=== PATIENT | male | born 1995 | race Caucasian/White ===

== ENCOUNTER 2018-08-03 16:14 | Emergency (ER) | payer SELFPAY ==
[~2018-08-03] VITALS: Ht 165.1 cm; Wt 59.0 kg
[2018-08-03 16:18] VITALS: BP_SYST 121
[2018-08-03 16:50] VITALS: BP_SYST 120
== END 2018-08-03 16:50 ==
LOC: SED 16:14
DX: F90.9 Attention-deficit hyperactivity disorder, unspecified type (principal); F32.9 Major depressive disorder, single episode, unspecified; Z02.89 Encounter for other administrative examinations
CPT/HCPCS: 99283

== ENCOUNTER 2020-11-23 21:01 | Emergency (ER) | payer OTHER, MEDICAID, SELFPAY ==
[~2020-11-23] VITALS: Ht 167.6 cm; Wt 68.0 kg
[2020-11-23 21:28] VITALS: BP_SYST 110
--- NOTE | 2020-11-23 21:48 | NUR ---
[facility] examining patient.
[2020-11-23] MEDS ORDERED: levETIRAcetam 500 MG IV PREMIX 100 ML IV ONE (22:00)
[2020-11-23 22:14] LABS: BASOPHILS % (AUTO) 0.5 % (0.0-2.0); EOSINOPHILS # (AUTO) 0.2 K/uL (0.0-0.4); EOSINOPHILS % (AUTO) 2.1 % (0.0-4.0); HEMATOCRIT 43.6 % (36-54); HEMOGLOBIN 14.7 g/dL (14.0-18.0); LYMPHOCYTES % (AUTO) 22.3 % (20.5-51.5); MEAN CORPUSCULAR HEMOGLOBIN 32 pg (27-31); MEAN CORPUSCULAR HGB CONC 34 % (32-36); MEAN CORPUSCULAR VOLUME 95 fL (79.0-98.0); MONOCYTES # (AUTO) 0.8 K/uL (0.0-1.0); MONOCYTES % (AUTO) 9.3 % (1.7-9.3); NEUTROPHILS # (AUTO) 5.9 K/uL (1.8-7.7); NEUTROPHILS % (AUTO) 65.8 % (40.0-70.0); PLATELET COUNT (AUTO) 268 K/uL (130-430); RED CELL DISTRIBUTION WIDTH 14.2 % (9.0-15.0); WHITE BLOOD COUNT (AUTO) 8.9 K/uL (4.8-10.8)
--- NOTE | 2020-11-23 22:30 | NUR ---
Patient to [facility] for evaluation. Side rails up.
--- NOTE | 2020-11-23 22:35 | NUR ---
PATIENT BROUGHT IN ALS FOR UNWITNESSED SEIZURE FROM [facility]. PATIENT IS AOX 4 SPEAKING FULL SENTENCES. PATIENT IS CURRENTLY ON A 5250, SITTER AT BEDSIDE. SEIZURE PADS IN PLACE. PATIENT REQUESTING FOOD AT THIS TIME. NO OTHER COMPLAINTS/INJURIES PER PATIENT OR NOTED. WILL CONTINUE TO MONITOR.
--- NOTE | 2020-11-23 22:40 | NUR ---
MEDICATED PER MD ORDERS. PATIENT ARRIVED WITH 18 GUAGE TO LEFT AC
[2020-11-23 23:04] LABS: ANION GAP 7 (5-15); CHLORIDE 103 mmol/L (98-107); CREATININE 0.79 mg/dL (0.55-1.30); GLUCOSE 111 mg/dL (70-99); POTASSIUM 3.8 mmol/L (3.5-5.1); SODIUM SERUM 140 mmol/L (136-145); UREA NITROGEN, BLOOD 28 mg/dL (8-21)
[2020-11-23 23:07] LABS: GFR AFRICAN AMERICAN 152 mL/min (>90)
[2020-11-23 23:16] LABS: ALANINE AMINOTRANSFERASE 207 U/L (12-78); ALBUMIN 3.9 g/dL (3.4-4.8); ASPARTATE AMINOTRANSFERASE 171 U/L (10-37); TOTAL BILIRUBIN 0.2 mg/dL (0.0-1.0)
[2020-11-23 23:18] LABS: ACETAMINOPHEN < 1 ug/mL (1-30); ALCOHOL, BLOOD < 3 mg/dL (<10)
--- NOTE | 2020-11-24 00:46 | NUR ---
Patient to be transferred to [facility]. Is being transferred due to higher level of care. Receiving facility has accepting physician and available space. ER physician has signed transfer form. Patient or responsible constitution party has agreed to transfer and signed form. Patient belongings inventoried and will be sent with patient. Copy of nursing notes, lab reports, EKG, Physicians Orders and X-rays to be sent with patient. Report called to ORAL CANELA at receiving facility. Receiving physician is [facility] service has been called for transfer. ETA is [id number]
[2020-11-24 01:22] VITALS: BP_SYST 112
--- NOTE | 2020-11-24 01:22 | NUR ---
[facility] here to transfer patient. Patient and transport given written and verbal discharge instructions and verbalizes understanding. ER MD discussed with patient the results and treatment provided. Patient in stable condition. ID arm band removed. IV catheter removed intact and dressing applied, no active bleeding. no rx given. Patient educated on pain management and to follow up with PMD. Pain Scale 0/10 Opportunity for questions provided and answered.
== END 2020-11-24 01:22 ==
LOC: SED 21:01
DX: G40.909 Epilepsy, unspecified, not intractable, without status epilepticus (principal); F32.9 Major depressive disorder, single episode, unspecified; Z88.8 Allergy status to other drugs, medicaments and biological substances
CPT/HCPCS: 36415; 80053; 85025; 93005; 96365; 99285; G0480; G0481; G0482; J1953